=== PATIENT | female | born 1980 | race Caucasian/White ===

== ENCOUNTER 2016-10-06 08:44 | Emergency (ER) | payer MEDICAID ==
[~2016-10-06] VITALS: Ht 157.5 cm; Wt 62.2 kg
[~2016-10-06 08:44] MED LIST: ADVAI100I PO; ALBU1AER INH; FERRF325 PO; ORTH1TAB PO; PREN0.01; PREN1CAP20 PO
[2016-10-06 08:46] VITALS: BP 143/103; PULSE 80; RESP 16; TEMP 97.4; O2SAT 99
[2016-10-06] MEDS ORDERED: ONDANSETRON HCL 4 MG/2 ML VIAL IVP ONE (09:00)
[2016-10-06] MEDS ORDERED: SODIUM CHLOR 0.9% 1000 ML INJ 1,000 ML IV SCH (09:00)
[2016-10-06] MEDS ORDERED: HYDROmorphone HCL PF 2 MG/ML VIAL IVS ONE (09:00)
[2016-10-06] MEDS ORDERED: SODIUM CHLORIDE 0.9% FLUSH 10 ML FLUSH IV FLUSH PRN (09:00)
--- NOTE | 2016-10-06 09:08 | PD ---
HPI Chief Complaint: Abdominal Pain Time Seen by Provider: 08:56 Travel History International Travel<30 days: No Contact w/Intl Traveler<30days: No Traveled to known affect area: No History of Present Illness HPI 36-year-old female arrives complaining of vomiting for the past 7 hours or so. Abdominal pain is reported about the umbilicus. It's constant. She denies any unusual foods however ate tacos last night. No fever. The patient has a history of an umbilical hernia and notes it has become very tender today. She cannot push it back in today. Positive flatus last night. No bowel movement last night. PFSH Past Medical History Asthma: Yes Diminished Hearing: No Respiratory: Yes (ASTHMA) ?: Not LMP: 09/28/2016 : 2 Para: 2 Past Surgical History Section: Yes Social History Alcohol Use: No Tobacco Use: No Substance Use: No Allergies-Medications (Allergen,Severity, Reaction): Coded Allergies: Amoxicillin (Verified Allergy, Intermediate, Rash, 10/06/16) Reported Meds & Prescriptions Reported Meds & Active Scripts Active Zofran Odt (Ondansetron Odt) 4 Mg Tab 4 Mg SL Q8HR PRN Reported Ortho-Novum 1/35 (Norethindrone-Ethinyl Estradiol) 1-35 Mg-Mcg Tab 1 Tab PO DAILY Proair Hfa 8.5 GM Inh (Albuterol Sulfate) 90 Mcg/Act Aer 1 Puff INH Q4H PRN 108 mcg/actuation Review of Systems Except as stated in HPI: all other systems reviewed are Neg Physical Exam Narrative GENERAL: 36 yo F, mild distress 2/2 pain SKIN: Warm and dry. HEAD: Atraumatic. Normocephalic. EYES: Pupils equal and round. No scleral icterus. No injection or drainage. ENT: No nasal bleeding or discharge. Mucous membranes pink and moist. NECK: Trachea midline. No JVD. CARDIOVASCULAR: Regular rate and rhythm. RESPIRATORY: No accessory muscle use. Clear to auscultation. Breath sounds equal bilaterally. GASTROINTESTINAL: Abdomen soft. Periumbilical hernia not reducible, TTP. MUSCULOSKELETAL: Extremities without clubbing, cyanosis, or edema. No obvious deformities. NEUROLOGICAL: Awake and alert. No obvious cranial nerve deficits. Motor grossly within normal limits. Five out of 5 muscle strength in the arms and legs. Normal speech. PSYCHIATRIC: Appropriate mood and affect; insight and judgment normal. Data Data Last Documented VS Vital Signs Date Time Temp Pulse Resp B/P Pulse Ox O2 Delivery O2 Flow Rate FiO2 10/06/16 10:44 99 10/06/16 10:44 2.00 10/06/16 09:34 Room Air 10/06/16 08:46 97.4 80 16 143/103 VS reviewed Orders Complete Blood Count With Diff (10/06/16 09:00) Comprehensive Metabolic Panel (10/06/16 09:00) Lipase (10/06/16 09:00) Urinalysis - C+S If Indicated (10/06/16 09:00) Iv Access Insert/Monitor (10/06/16 09:00) Ecg Monitoring (10/06/16 09:00) Oximetry (10/06/16 09:00) Hydromorphone Pf Inj (Dilaudid Pf Inj) (10/06/16 09:00) Ondansetron Inj (Zofran Inj) (10/06/16 09:00) Sodium Chlor 0.9% 1000 Ml Inj (Ns 1000 M (10/06/16 09:00) Sodium Chloride 0.9% Flush (Ns Flush) (10/06/16 09:00) Prochlorperazine Inj (Compazine Inj) (10/06/16 09:15) Ed Urine Pregnancytest Poc (10/06/16 09:34) Propofol 200 Mg/20 Ml Inj (Diprivan 200 (10/06/16 09:45) Beta Hcg (Quant/Titer) (10/06/16 10:06) Oral Rehydration (10/06/16 10:48) Labs Laboratory Tests Test 10/06/16 09:15 White Blood Count 14.5 TH/MM3 Red Blood Count 5.13 MIL/MM3 Hemoglobin 16.1 GM/DL Hematocrit 47.8 % Mean Corpuscular Volume 93.1 FL Mean Corpuscular Hemoglobin 31.4 PG Mean Corpuscular Hemoglobin 33.8 % Concent Red Cell Distribution Width 13.2 % Platelet Count 356 TH/MM3 Mean Platelet Volume 8.1 FL Neutrophils (%) (Auto) 82.6 % Lymphocytes (%) (Auto) 11.4 % Monocytes (%) (Auto) 2.8 % Eosinophils (%) (Auto) 0.4 % Basophils (%) (Auto) 2.8 % Neutrophils # (Auto) 11.9 TH/MM3 Lymphocytes # (Auto) 1.7 TH/MM3 Monocytes # (Auto) 0.4 TH/MM3 Eosinophils # (Auto) 0.1 TH/MM3 Basophils # (Auto) 0.4 TH/MM3 CBC Comment AUTO DIFF Differential Comment AUTO DIFF CONFIRMED Sodium Level 138 MEQ/L Potassium Level 3.9 MEQ/L Chloride Level 102 MEQ/L Carbon Dioxide Level 28.4 MEQ/L Anion Gap 8 MEQ/L Blood Urea Nitrogen 13 MG/DL Creatinine 0.96 MG/DL Estimat Glomerular Filtration 65 ML/MIN Rate Random Glucose 114 MG/DL Calcium Level 9.8 MG/DL Total Bilirubin 0.8 MG/DL Aspartate Amino Transf 15 U/L (AST/SGOT) Alanine Aminotransferase 22 U/L (ALT/SGPT) Alkaline Phosphatase 76 U/L Total Protein 9.0 GM/DL Albumin 4.5 GM/DL Lipase 98 U/L Human Chorionic Gonadotropin, LESS THAN 1 Quant MIU/ML MDM Medical Decision Making Medical Screen Exam Complete: Yes Emergency Medical Condition: Yes Medical Record Reviewed: Yes Differential Diagnosis Constipation, Gastritis, Acute Cholecystitis, Biliary Colic, Pancreatitis, [place] , Hepatitis, Bowel Obstruction, Cystitis, Mesenteric Ischemia, AAA, Appendicitis , Renal Stone/Hydronephrosis, GERD, perforated viscous Narrative Course CBC & BMP Diagram 10/06/16 09:15 LFTs and lipase normal Beta 0 0930: pt resting on bed, mild-moderate persistent distress, compazine/ivf/ dilaudid given a few minutes prior, ice packed placed on hernia 0950: pt reports some pain relief; attempted reduction at bedside unsuccessful 2 /2 pt discomfort; procedural sedation planned 1105: PT REPORTS NO PAIN; DRANK 6 OUNCES OF GATORADE 1145: PT COMFORTABLE, NO PAIN; ZOFRAN SCRIPT, FOLLOW UP WITH GENERAL SURGERY Procedures Procedure Narrative After the risks and benefits were discussed the following procedure was performed: MODERATE SEDATION: The patient was placed on a spring coverer and pulse oximetry. An ambu bag and suction was immediately available at bedside. The patient was monitored by the nurse. Oxygen saturation , heart rate and blood pressure were monitored. Procedural sedation was acheived using propofol. The patient was observed until awake and alert. Procedural Sedation time in attendance was 5 minutes. Diagnosis Primary Impression: Nausea & vomiting Qualified Code: R11.2 - Nausea and vomiting, intractability of vomiting not specified, unspecified vomiting type Additional Impression: Umbilical hernia Qualified Code: K42.9 - Umbilical hernia without obstruction and without gangrene Referrals: Weston Fields MD 2 days Additional Instructions: RETURN TO THE ER IF VOMITING CONTINUES, PAIN WORSENS, OR IF YOU DEVELOP A FEVER. PLEASE RETURN TO THE ER WITHOUT DELAY IF SYMPTOMS WORSEN ESPECIALLY WITHIN THE NEXT 6-8 HOURS. YOU HAVE A REDUCIBLE UMBILICAL HERNIA. ULTIMATELY THE TREATMENT FOR THE UMBILICAL HERNIA IS A SURGERY. PLEASE CALL DR FIELDS TO SCHEDULE AN OUTPATIENT FOLLOW UP APPOINTMENT. Med/Other Pt SpecificInfo: Prescription(s) given Scripts Ondansetron Odt (Zofran Odt)4 Mg Tab4 Mg SL Q8HR PRN (Nausea/Vomiting) #10 TAB Ref 0 Prov:Cyrus Kaur MD 10/06/16 Disposition: 01 DISCHARGE HOME Condition: Stable Cyrus Kaur MD Oct 06, 2016 09:08
[2016-10-06] MEDS ORDERED: PROCHLORPERAZINE INJ 10 MG/2 ML VIAL IV PUSH ONE (09:15)
[2016-10-06 09:34] VITALS: O2SAT 100
[2016-10-06] MEDS ORDERED: ALBUAER3 INH (09:36)
[2016-10-06] MEDS ORDERED: ORTH1TAB PO (09:36)
[2016-10-06 09:37] LABS: AUTOMATED NEUTROPHIL # 11.9 TH/MM3 (1.8-7.7); BASOPHIL # 0.4 TH/MM3 (0-0.2); BASOPHIL % 2.8 % (0.0-2.0); EOSINOPHIL # 0.1 TH/MM3 (0-0.4); EOSINOPHIL % 0.4 % (0.0-4.0); HEMATOCRIT 47.8 % (35.0-46.0); LYMPH % 11.4 % (9.0-44.0); LYMPHOCYTE # 1.7 TH/MM3 (1.0-4.8); MEAN CELL VOLUME 93.1 FL (80.0-100.0); MEAN CORPUSCULAR HEMOGLOBIN 31.4 PG (27.0-34.0); MEAN CORPUSCULAR HGB CONC 33.8 % (32.0-36.0); MONO % 2.8 % (0.0-8.0); NEUT % 82.6 % (16.0-70.0); PLATELET COUNT 356 TH/MM3 (150-450); RED BLOOD COUNT 5.13 MIL/MM3 (4.00-5.30); RED CELL DISTRIBUTION WIDTH 13.2 % (11.6-17.2); WHITE BLOOD COUNT 14.5 TH/MM3 (4.0-11.0)
[2016-10-06 09:39] LABS: HEMO FLAGS AUTO DIFF
[2016-10-06] MEDS ORDERED: PROPOFOL 200 MG/20 ML AMP IV ONE (09:45)
[2016-10-06 09:54] LABS: BICARBONATE 28.4 MEQ/L (21.0-32.0)
[2016-10-06 09:56] LABS: BLOOD UREA NITROGEN 13 MG/DL (7-18)
[2016-10-06 09:57] LABS: ALT (GPT) 22 U/L (10-53); AST (GOT) 15 U/L (15-37); GLOMERULAR FILTRATION RATE 65 ML/MIN (>89)
[2016-10-06 10:00] LABS: ALKALINE PHOSPHATASE 76 U/L (45-117); ANION GAP 8 MEQ/L (5-15); CHLORIDE 102 MEQ/L (98-107); POTASSIUM 3.9 MEQ/L (3.5-5.1); SODIUM (NA) 138 MEQ/L (136-145)
[2016-10-06 10:05] LABS: TOTAL BILIRUBIN ADULT 0.8 MG/DL (0.2-1.0)
[2016-10-06 10:06] LABS: SCAN/DIFF AUTO DIFF CONFIRMED
[2016-10-06 10:35] LABS: BETA HCG QUANT LESS THAN 1 MIU/ML (0-5)
[2016-10-06 10:44] VITALS: O2SAT 99
[2016-10-06] MEDS ORDERED: ZOFR4TAB3 SL (11:35)
[2016-10-06 12:03] VITALS: BP 120/90
== END 2016-10-06 12:05 | disposition home or self-care (01) ==
LOC: PHED 08:44
DX: R11.2 Nausea with vomiting, unspecified (principal); K42.9 Umbilical hernia without obstruction or gangrene
CPT/HCPCS: 80053; 83690; 84702; 85025; 94770; 96361; 96374; 96375; 99285; J0780; J1170; J7030

== ENCOUNTER 2017-04-10 17:54 | Emergency (ER) | payer MEDICAID, OTHER ==
[~2017-04-10 17:54] MED LIST changes: -ADVAI100I PO; -ALBU1AER INH; +ALBUAER3 INH; -FERRF325 PO; -PREN0.01; -PREN1CAP20 PO
[2017-04-10 18:05] VITALS: BP 122/75; PULSE 74; RESP 16; TEMP 97.6; O2SAT 97
--- NOTE | 2017-04-10 19:41 | PD ---
HPI Chief Complaint: Musculoskeletal Complaint Time Seen by Provider: 19:02 Travel History International Travel<30 days: No Contact w/Intl Traveler<30days: No Traveled to known affect area: No History of Present Illness HPI 36-year-old female presents to emergency with multiple medical complaints. States that she has had a rash on bilateral armpits for approximately 2 years. States that the rash is pruritic and especially worse at night. Patient states that she has tried multiple xwbb-qes-jqyavet medications to include Monistat and baby powder and has had no relief. Patient states that she has been wanting to see her PCP but has been unable to do so. Patient denies fevers or chills. Denies lumps or tenderness to the area. She states that she has used deodorant however, sent off shortly afterwards because of irritation. Patient states that she has been shaving as well. Pt presents today because she also ran into a wall and has neck pain. Patient also complains of neck stiffness after running into a door today. States that she is having some neck stiffness and having trouble moving her head because of the discomfort. Says he pain is mild when movement. States the pain is located in the upper right trapezius, lower cervical paraspinous muscles. Denies numbness or tingling. Denies weakness. Denies loss of consciousness or headache. Denies chronic medical issues or medication use. PFSH Past Medical History Asthma: Yes Diminished Hearing: No Respiratory: Yes (ASTHMA) ?: Not LMP: LAST WEEK : 2 Para: 2 Past Surgical History Surgical History: No Previous Surgery Section: Yes Social History Alcohol Use: No Tobacco Use: No Substance Use: No Allergies-Medications (Allergen,Severity, Reaction): Coded Allergies: amoxicillin (Unverified Allergy, Intermediate, Rash, 04/10/17) Reported Meds & Prescriptions Reported Meds & Active Scripts Active Robaxin (Methocarbamol) 500 Mg Tab 500 Mg PO TID 3 Days Nystatin-Triamcinolone 100,000-0.1 Unit/Gm Cream 1 Applic TOPICAL BID 5 Days Ortho-Novum 1/35 (Norethindrone-Ethinyl Estradiol) 1-35 Mg-Mcg Tab 1 Tab PO DAILY Reported Proair Hfa 8.5 GM Inh (Albuterol Sulfate) 90 Mcg/Act Aer 1 Puff INH Q4H PRN 108 mcg/actuation Review of Systems Except as stated in HPI: all other systems reviewed are Neg Physical Exam Narrative GENERAL: A well-nourished in mild distress SKIN: Focused skin assessment warm/dry. Bilateral axilla- multiple small apparent healing scabs from 1-2 mm in size without exudate or discharge. No surrounding erythema or edema. Armpit is without hair (pt shaves) HEAD: Atraumatic- no apparent trauma to the head. Normocephalic. EYES: Pupils equal and round. No scleral icterus. No injection or drainage. ENT: No nasal bleeding or discharge. Mucous membranes pink and moist. NECK: Trachea midline. No JVD. No midline tenderness, mild paraspinous tenderness to the lower right cervical spine, full range of motion of neck but with stiffness and tenderness. CARDIOVASCULAR: Regular rate and rhythm. No murmur appreciated. RESPIRATORY: No accessory muscle use. Clear to auscultation. Breath sounds equal bilaterally. MUSCULOSKELETAL: No obvious deformities. No clubbing. No cyanosis. No edema. NEUROLOGICAL: Awake and alert. No obvious cranial nerve deficits. Motor grossly within normal limits. Normal speech. PSYCHIATRIC: Appropriate mood and affect; insight and judgment normal. Data Data Last Documented VS Vital Signs Date Time Temp Pulse Resp B/P (MAP) Pulse Ox O2 Delivery O2 Flow Rate FiO2 04/10/17 18:05 97.6 74 16 122/75 (91) 97 Orders Orders Ketorolac Inj (Toradol Inj) (04/10/17 19:45) Ed Discharge Order (04/10/17 19:50) [facility] Medical Decision Making Medical Screen Exam Complete: Yes Emergency Medical Condition: Yes Differential Diagnosis Bilateral axilla folliculitis, neck strain, muscle spasms Narrative Course 36-year-old female presents to emergency with multiple medical complaints. States that she has had a rash on bilateral armpits for approximately 2 years. States that the rash is pruritic and especially worse at night. Patient states that she has tried multiple rmym-sag-npyumed medications to include Monistat and baby powder and has had no relief. Patient states that she has been using prescription her primary care but has not done so. Patient denies fevers or chills. Denies lumps or tenderness to the area. She states that she has used deodorant however, sent off shortly afterwards because of irritation. Patient states that she has been shaving as well. Patient also complains of neck stiffness after running into a door today. States that she is having some neck stiffness and having trouble moving her head because of the discomfort. States the pain is located in the upper right trapezius, lower cervical paraspinous muscles. Denies numbness or tingling. Denies weakness. Denies loss of consciousness or headache. Denies chronic medical issues medication use. Vital signs stable. Physical exam findings consistent with folliculitis- no erythema or edema. It appears that the lesions are in a healing stage and it is apparent that she does shave her armpits. Neck- right lower cervical spine tenderness palpation with an obvious tender cord, no midline tenderness, or weakness of the upper extremities. Toradol administered for pain. Patient will be discharged on nystatin-triamcinolone ointment and Robaxin. Advised to stop shaving her armpits. Patient strongly advised to follow-up with a primary care physician for continuation of her care. Consider dermatology for further treatment and evaluation. Diagnosis Primary Impression: Folliculitis Additional Impression: Neck strain Qualified Codes: S16.1XXA - Strain of muscle, fascia and tendon at neck level , initial encounter Referrals: [facility] Additional Instructions: Perform light stretches of the neck and upper extremities, especially after you take Robaxin. Return to the ED for further treatment and evaluation. Avoid shaving until completely resolved. If the site develops increased redness, swelling, erythema return to the emergency department. If the site develops open sores, start Polysporin ointment on the area. Consider following up with a pharmaceutical engineer for your rash. Follow up with [facility]. Scripts Methocarbamol (Robaxin) 500 Mg Tab 500 MG PO TID for Muscle Spasm for 3 Days, TAB 0 Refills Prov: Veronica Gao 04/10/17 Nystatin-Triamcinolone (Nystatin-Triamcinolone) 100,000-0.1 Unit/Gm Cream 1 APPLIC TOPICAL BID for Infection for 5 Days, #15 GM 0 Refills Prov: Veronica Gao 04/10/17 Disposition: 01 DISCHARGE HOME Condition: Stable Veronica Gao Apr 10, 2017 19:41
[2017-04-10] MEDS ORDERED: NYSTCRE29 TOPICAL (19:43)
[2017-04-10] MEDS ORDERED: ROBA500T PO (19:43)
[2017-04-10] MEDS ORDERED: KETOROLAC TROMETHAMINE 60 MG/2 ML (IM) VIAL IM ONE (19:45)
== END 2017-04-10 20:02 | disposition home or self-care (01) ==
LOC: PHED 17:54 → PHEFT 20:02
DX: L73.9 Follicular disorder, unspecified (principal); S16.1XXA Strain of muscle, fascia and tendon at neck level, initial encounter; J45.909 Unspecified asthma, uncomplicated; W22.01XA Walked into wall, initial encounter; Z88.0 Allergy status to penicillin; Z79.899 Other long term (current) drug therapy
CPT/HCPCS: 96372; 99284; J1885